=== PATIENT | female | born 1965 | race Caucasian/White ===

== ENCOUNTER 2017-08-27 09:41 | Day surgery (SDC) | payer OTHER ==
[2017-08-27] MEDS ORDERED: FENTAnyl 50 MCG/ML VIAL (12:30)
[2017-08-27] MEDS ORDERED: MIDAZOLAM 1 MG/ML 2 ML INJ ×2 (12:30)
== END 2017-08-27 14:51 | disposition home or self-care (01) ==
LOC: GIL 09:41
DX: Z12.11 Encounter for screening for malignant neoplasm of colon (principal); K21.9 Gastro-esophageal reflux disease without esophagitis; K29.50 Unspecified chronic gastritis without bleeding; D12.5 Benign neoplasm of sigmoid colon; K64.8 Other hemorrhoids; I10 Essential (primary) hypertension
CPT/HCPCS: 43239; 88305; 88312